=== PATIENT | female | born 1940 | race Caucasian/White ===

== ENCOUNTER 2023-10-14 16:43 | Inpatient (IN) | payer MEDICARE, SELFPAY ==
[2023-10-14] VITALS (14 sets, daily range): BP systolic 113–160; BP diastolic 60–98; PULSE 96–138; RESP 16–30; TEMP 36.4–36.9; O2SAT 44–99
--- NOTE | ~2023-10-14 | XR_ITS ---
EXAMINATION: XR chest 1V portable Exam Date/Time: 10/14/2023 16:50 CONTAINERS SALES REPRESENTATIVE HISTORY: SOB Comparison: None. RESULT: Lines, tubes, and devices: None. Lungs and pleura: Complete opacification of left hemithorax, with suggestion of volume loss in the l eft hemithorax. Cardiomediastinal silhouette: Obscured. Other: No acute osseous or upper abdominal finding. IMPRESSION: Complete opacification of left hemithorax as can be seen with pneumonectomy, total lung atelectasis, large consolidation, and pleural or chest wall mass. Reviewed, dictated and finalized at location K. AINERS SALES REPRESENTATIVE IMPRESSION: Complete opacification of left hemithorax as can be seen with pneumonectomy, to thai lung atelectasis, large consolidation, and pleural or chest wall mass.
--- NOTE | ~2023-10-14 | CT_ITS ---
EXAMINATION: CT chest abdomen pelvis w con DATE: 10/14/2023 20:41 INDICATION: presumed esophogeal cancer, check for metastesis . TECHNIQUE: Computed tomography (CT) of the chest, abdomen, and pelvis was performed with 100 mL Omnip aque-350 intravenous contrast. Automated exposure control and iterative reconstruction technique were employed. The dose-length product was 283.94 mGy-cm. COMPARISON: CT chest, noncontrast, same date FINDINGS: Examination limited by motion artifact and beam hardening from arm positioning. CHEST: Thoracic aorta: Mild ectasia and calcification. Lung parenchyma and airways: Complete atelectasis of the left lung. Scattered areas of centrilobular nodular opacity in the right lung. Fluid-filled left-sided bronchi. Thoracic inlet, axillae and chest wall: No thyroid or soft tissue mass. No axillary lymphadenopathy. Mediastinum: Masslike expansion of the mid esophagus measuring 7.2 x 5.8 x 10.6 cm. Patulous proximal esophagus. Normal-appearing distal esophagus below the level of the esophageal mass. Prevascular and subcarinal and right hilar lymphadenopathy. Heart and pericardium: Normal heart size. No pericardial effusion. Coronary artery calcifications: Absent. Pleura: Moderate volume left pleural effusion. Thoracic bones: No acute osseous finding in the chest. ABDOMEN/PELVIS: Liver: Right lobe cyst. Subcentimeter lesions are too small to characterize.. Biliary/Gallbladder: Gallbladder is normal. No bile duct dilation. Pancreas: No mass or duct dilation. Spleen: Normal. Adrenals:No mass. Kidneys: Nodular heterogeneous density masses infiltrate the posterior aspect of the bilateral perire nal spaces. No obstructing stone or or hydronephrosis. GI tract: No small or large bowel dilation. Appendix not confidently visualized. Mesentery/Peritoneum: Enlarged upper abdominal and michael hepatic lymph nodes. No ascites or free air. Retroperitoneum: Enlarged periaortic lymph nodes. Pelvis: Grossly normal urinary bladder. Uterus not visualized Soft Tissues: Soft tissues and body wall unremarkable. Abdominopelvic bones: No acute osseous finding in the abdomen/pelvis. IMPRESSION: Mediastinal mass measuring 7.2 x 5.8 x 10.6 cm, may represent an esophageal primary with ciro extens ion or vice versa. Left lung atelectasis with a moderate left effusion and extensive airway fluid which may be secondary to obstruction or invasion from the mediastinal ciro esophageal mass. Atypical infection and/or aspiration in the right lung. Bilateral perirenal space lesions which may represent tumor, retroperitoneal hematoma, or extramedull gold hematopoiesis. Tumor, such as lymphoma or metastases, is favored Upper abdominal/peritoneal lymphadenopathy Reviewed, dictated and finalized at [facility] K. [facility] IMPRESSION: Mediastinal mass measuring 7.2 x 5.8 x 10.6 cm, may represent an esophageal shaquille bruce with ciro extension or vice versa. Left lung atelectasis with a moderate left effusion and extensive airway fluid which may be secondary to obstruction or invasion from the mediastinal ciro es ophageal mass. Atypical infection and/or aspiration in the right lung. Bilateral perirenal space lesions which may represent tumor, retroperitoneal he matoma, or extramedullary hematopoiesis. Tumor, such as lymphoma or metastases, is favored Upper abdominal/peritoneal lymphadenopathy
--- NOTE | ~2023-10-14 | CT_ITS ---
EXAMINATION: CT diagnostic chest wo con DATE: 10/14/2023 17:31 INDICATION: rule out malignancy TECHNIQUE: Computed tomography (CT) of the chest was performed with 100 mL Omnipaque-350 intravenous contrast. Automated exposure control and iterative reconstruction technique were employed. The dose-l ength product was 135.96 mGy-cm. COMPARISON: None. FINDINGS: CHEST: Thoracic aorta: Mild ectasia and calcification. Lung parenchyma and airways: Complete atelectasis of the left lung motion artifact in the right lung with scattered areas of centrilobular nodular opacity. Thoracic inlet, axillae and chest wall: No thyroid or soft tissue mass. No axillary lymphadenopathy. Mediastinum: The proximal esophagus is patulous. The mid esophagus at the level of the taisha is adilene edly dilated with irregular wall thickening. The more distal esophagus appears more normal. There is mediastinal lymphadenopathy. Heart and pericardium: Normal heart size. No pericardial effusion. Coronary artery calcifications: Absent. Pleura: Small volume left pleural effusion. Upper abdomen: Considerable upper abdominal lymphadenopathy with nodular peritoneal masses. Thoracic bones: No acute osseous finding in the chest. IMPRESSION: Findings concerning for esophageal cancer, with metastatic disease involving the mediastinal lymph no edgar, upper abdominal lymph nodes and upper abdominal peritoneal spaces. The prior chest radiographic findings are secondary to complete left lung atelectasis which is probab ly secondary to bronchial occlusion/invasion from metastatic mediastinal lymphadenopathy. A component of mucus plugging could also be present. Scattered right lung pulmonary opacities may represent atypical infection or aspiration. Reviewed, dictated and finalized at location K. KEN AND FISH CLEANER IMPRESSION: Findings concerning for esophageal cancer, with metastatic disease involving th e mediastinal lymph nodes, upper abdominal lymph nodes and upper abdominal katrina toneal spaces. The prior chest radiographic findings are secondary to complete left lung atele ctasis which is probably secondary to bronchial occlusion/invasion from metasta tic mediastinal lymphadenopathy. A component of mucus plugging could also be pr esent. Scattered right lung pulmonary opacities may represent atypical infection or as piration.
--- NOTE | 2023-10-14 16:50 | ECG_ITS ---
Measurements Intervals [place] Rate: 102 P: 68 [place]: 156 QRS: 89 QRSD: 86 T: 100 QT: 365 QTc: 477 Interpretive Statements SINUS TACHYCARDIA POSSIBLE LEFT ATRIAL ENLARGEMENT ANTEROSEPTAL INFARCT, AGE INDETERMINATE BASELINE ARTIFACT- I, II, III, AVR, AVL, AVF, V1-V6 ABNORMAL ECG NO PREVIOUS ECG AVAILABLE FOR COMPARISON Electronically Signed On 10-14-2023 20:59:32 HEADER OPERATOR by Jaiden Buitrago D.O.
--- NOTE | 2023-10-14 17:06 | ED.GENADULT ---
HPI - General Adult General Chief complaint: Shortness of Breath/Dyspnea Stated complaint: SOB, Wheezing Time Seen by Provider: 10/14/23 17:06 Source: family Mode of arrival: ambulatory Limitations: physical limitation and clinical condition History of Present Illness HPI narrative: 82-year-old white female lives with her daughter, came to the ED with her daughter by private car. The daughter is telling me that patient has been having trouble breathing for a few months. Was seen by her doctor few times without significant improvement, was seen by ENT 6 days ago and was started on antibiotic for possible bronchitis / pneumonia, no imaging was done in the last few months. Patient does not take medicine at home, the daughter states that patient has been not eating well or drinking well over the last few months, patient is DNR, history of smoking years ago, is not on anti-platelet or anticoagulant medication. The daughter is telling me that patient probably has some dementia. Related Data Allergies Allergy/AdvReac Type Severity Reaction Status Date / Time No Known Allergies Allergy Verified 10/14/23 17:00 Course Consultations Consultation #1: dr thomas Will see the patient in a.m. Date: 10/14/23 Time: 18:28 Vital Signs Vital signs: Vital Signs Temperature 36.6 C 10/14/23 16:51 Pulse Rate 107 H 10/14/23 16:51 Respiratory Rate 30 H 10/14/23 16:51 Blood Pressure 157/95 H 10/14/23 16:51 Pulse Oximetry 88 L 10/14/23 16:51 Oxygen Delivery Room Air 10/14/23 16:51 Temperature 36.6 C 10/14/23 16:51 Pulse Rate 100 10/14/23 18:01 Respiratory Rate 24 H 10/14/23 18:01 Blood Pressure 124/80 10/14/23 18:01 Pulse Oximetry 95 10/14/23 18:01 Oxygen Delivery Nasal Cannula 10/14/23 17:02 Oxygen Flow Rate 2 10/14/23 17:02 Medical Decision Making Medical Records Medical records reviewed: Yes I reviewed the external patient's medical records. Vital Signs Vital Signs: Vital Signs Temperature 36.6 C 10/14/23 16:51 Pulse Rate 107 H 10/14/23 16:51 Respiratory Rate 30 H 10/14/23 16:51 Blood Pressure 157/95 H 10/14/23 16:51 Pulse Oximetry 88 L 10/14/23 16:51 Oxygen Delivery Room Air 10/14/23 16:51 Temperature 36.6 C 10/14/23 16:51 Pulse Rate 100 10/14/23 18:01 Respiratory Rate 24 H 10/14/23 18:01 Blood Pressure 124/80 10/14/23 18:01 Pulse Oximetry 95 10/14/23 18:01 Oxygen Delivery Nasal Cannula 10/14/23 17:02 Oxygen Flow Rate 2 10/14/23 17:02 Lab Data Lab results reviewed: Yes I reviewed the patient's lab results. 10/14/23 16:58 10/14/23 18:03 Labs: Lab Results 10/14/23 10/14/23 10/14/23 Range/Units 16:58 17:05 18:03 WBC 18.4 H (4.5-10.0) K/mm3 RBC 5.24 (4.2-5.4) M/mm3 Hgb 15.1 H (12.0-15.0) g/dL Hct 48.8 H (37.0-47.0) % MCV 93.1 (80-100) fl MCH 28.8 (26-34) pg MCHC 30.9 L (32-36) g/dl RDW 15.8 H (11.5-14.5) % Plt Count 520 H (150-375) k/mm3 MPV 10.2 (7.4-10.4) fl Immature Gran % (Auto) 0.4 (0-0.5) % Neut % (Auto) 81.5 H (45.5-73.1) % Lymph % (Auto) 13.6 L (18.3-44.2) % [place] % (Auto) 4.2 (2.6-8.5) % Eos % (Auto) 0.0 (0-4.4) % Baso % (Auto) 0.3 (0.2-1.2) % Lymph # (Auto) 2.51 (0.9-3.2) K/mm3 [place] # (Auto) 0.8 H (0.1-0.6) K/mm3 Eos # (Auto) 0.0 (0-0.3) K/mm3 Baso # (Auto) 0.1 (0.0-0.1) K/mm3 Abs Immat Gran (auto) 0.08 H (0.00-0.031) K/mm3 Absolute Neuts (auto) 15.0 H (1.3-6.7) K/mm3 Absolute Nucleated RBC 0.0 (0.0-0.012) K/mm3 Nucleated RBC % 0.0 (0.0-0.2) % PT 13.7 (11.1-14.7) Seconds INR 1.0 APTT 23.2 (22.3-36.8) SECONDS Methemoglobin 0.4 (0-1.5) %THb Sodium 137 (137-145) mmol/L Potassium 4.2 (3.4-5.0) mmol/L Chloride 97 L (98-107) mmol/L Carbon Dioxide 27 (22-30) mmol/L Anion Gap 13 (8-16) mmol/L BUN 18 H (7-17) mg/dL Creatinine 0.7
[2023-10-14 17:09] LABS: Basophils Absolute Auto 0.1 K/mm3 (0.0-0.1); Basophils Percent Auto 0.3 % (0.2-1.2); Hematocrit 48.8 % (37.0-47.0); Hemoglobin 15.1 g/dL (12.0-15.0); Immature Granulocyte Absolute 0.08 K/mm3 (0.00-0.031); Immature Granulocyte Percent A 0.4 % (0-0.5); Lymphocytes Absolute Auto 2.51 K/mm3 (0.9-3.2); Lymphocytes Percent Auto 13.6 % (18.3-44.2); Mean Corpuscular HGB Conc 30.9 g/dl (32-36); Mean Corpuscular Hemoglobin 28.8 pg (26-34); Mean Corpuscular Volume 93.1 fl (80-100); Mean Platelet Volume 10.2 fl (7.4-10.4); Monocytes Absolute Auto 0.8 K/mm3 (0.1-0.6); Monocytes Percent Auto 4.2 % (2.6-8.5); Neutrophils Percent Auto 81.5 % (45.5-73.1); Platelet Count Result 520 k/mm3 (150-375); Red Blood Count 5.24 M/mm3 (4.2-5.4); Red Cell Distribution Width 15.8 % (11.5-14.5); White Blood Count 18.4 K/mm3 (4.5-10.0)
[2023-10-14 17:10] LABS: Alveolar/Arterial O2 Gradient 82.7 mmHg; Base Excess ABG 1.3 mEq/l (+/-2.0); Carboxyhemoglobin 0.7 % THb (0-2.0); Fractional Inspired Oxygen 28 %; HCO3 ABG 27.2 mEq/l (22.0-26.0); Methemoglobin ABG 0.4 %THb (0-1.5); Oxygen Content ABG 18.3 %vol (16.0-22.0); Oxygen Saturation ABG 90.5 % (95.0-100.0); Oxyhemoglobin 87.9 % THb (90.0-100.0); PCO2 ABG 47.7 mmHg (35.0-45.0); PO2 ABG 60.7 mmHg (80.0-100.0); PO2 FiO2 Ratio Arterial Blood 2.17 %; Total Hemoglobin 14.8 g/dL (12.0-18.0); pH ABG 7.374 (7.350-7.450)
[2023-10-14] MEDS: ONDANSETRON INJ 4 MG/2 ML VIAL IV PUSH (17:10)
[2023-10-14] MEDS: MORPHINE SULFATE (*CRX) 2 MG/ML INJ IV PUSH (17:10)
[2023-10-14 17:11] LABS: Device NASAL CANNULA; Site Drawn RIGHT BRACHIAL
[2023-10-14 17:29] LABS: Prothrombin Time 13.7 Seconds (11.1-14.7)
[2023-10-14 17:30] LABS: Partial Thromboplastin Time 23.2 SECONDS (22.3-36.8)
[2023-10-14 18:28] LABS: Alanine Aminotransferase 23 U/L (6-35); Albumin Level 3.8 g/dL (3.5-5.1); Alkaline Phosphatase 65 U/L (38-126); Anion Gap 13 mmol/L (8-16); Aspartate Amino Transferase 41 U/L (14-36); Bilirubin,Total 0.5 mg/dL (0.2-1.3); Blood Urea Nitrogen 18 mg/dL (7-17); Calcium 9.5 mg/dL (8.4-10.2); Carbon Dioxide 27 mmol/L (22-30); Chloride 97 mmol/L (98-107); Estimated Glomerular Filt Rate > 60; Glucose 191 mg/dL (65-110); Potassium 4.2 mmol/L (3.4-5.0); Sodium 137 mmol/L (137-145)
[2023-10-14] MEDS: PIPERACILLN/TAZ 3.375GM/NS50ML 3.375 GM/50 ML BAG IVPB (18:50)
[2023-10-14 19:06] LABS: Lactic Acid Reflex 2.3 mmol/L (0.7-2.0)
--- NOTE | 2023-10-14 19:27 | PM.IMHP ---
H&P: HPI History of Present Illness Date/Time: 10/14/23 19:27 Chief Complaint: Dyspnea Narrative: This is an 82-year-old female patient who presented to the emergency department with complaints of difficulty breathing difficulty swallowing difficulty eating and weight loss. Symptoms have been ongoing for months getting worse each day. Patient's daughter states that patient's breathing has become very noisy over the last 2 days. She has not been eating or drinking appropriately and she has been having trouble swallowing when she does try to drink. Patient is very hard of hearing limiting the HPI and ROS. Patient tends to read lips and can understand her daughter the best. Patient was started on oxygen 2 L nasal cannula in the emergency department after being found to have a room air saturation of 88%. Chest x-ray revealed left lung essentially sabrina out. Chest CT contrast shows what appears to be esophageal cancer causing complete atelectasis of the left lung secondary to bronchial occlusion/information metastatic mediastinal lymphadenopathy and/or mucus plugging. Pulmonology was consulted and Dr. Mix stated she would see the patient tomorrow. Additionally, ER consulted Gastroenterology and Dr. Serra will see the patient tomorrow. Oncology has not yet been consulted. ER provider discussed possible hospice/comfort care with the patient and daughter. Additional family members will be arriving tomorrow and any further decisions have been delayed at this time. Patient is DNR status. Patient is quite awake and alert at this time. Patient denies any pain at this time. Review of Systems Review of Systems: ROS unobtainable: Yes other (Limited due to inability to hear and only reading lips) [facility] Past Medical History Medical History Arthritis Dementia Goiter HTN (hypertension) Surgical History Surgical History H/O: hysterectomy Hx of tonsillectomy Social History Social History Smoking status: Former smoker Tobacco type: cigarettes Alcohol intake: never Substance use: never Lack of Transportation: No Lack of Food: Never True Current Housing: I Have Housing Concerned About Future Housing: No Difficulty Paying Gas/Electric Bills: No Difficulty Paying for Meds: No Currently Unemployed: No Education: Bachelor's Degree Difficulty w/ Childcare or Family Care: No Spiritual care concerns: No Meds Home Medications and Allergies Home Medications Medication Instructions Recorded Confirmed Type amoxicillin 400 mg-potassium 10 ml PO BID 10/14/23 10/14/23 History clavulanate 57 mg/5 mL oral suspension Allergies Allergy/AdvReac Type Severity Reaction Status Date / Time No Known Allergies Allergy Verified 10/14/23 17:00 Vital Signs Vital Signs - 24 hr 10/14/23 16:51 10/14/23 16:56 10/14/23 16:59 Temperature 36.6 C Pulse Rate 107 H 101 H 107 H Respiratory Rate 30 H 23 H Blood Pressure 157/95 H 157/95 H Pulse Oximetry 88 L 91 Oxygen Delivery Room Air Oxygen Flow Rate 10/14/23 17:00 10/14/23 17:02 10/14/23 18:01 Temperature Pulse Rate 100 Respiratory Rate 24 H Blood Pressure 124/80 Pulse Oximetry 91 91 95 Oxygen Delivery Nasal Cannula Nasal Cannula Oxygen Flow Rate 2 2 10/14/23 18:49 Temperature Pulse Rate 105 H Respiratory Rate 26 H Blood Pressure Pulse Oximetry 94 Oxygen Delivery Oxygen Flow Rate Exam Narrative: GENERAL: Thin and cachectic appearing, loud noisy breathing with tachypnea. HEENT: Pupils are equally round and briskly reactive to light. Extraocular muscles are intact. NECK: The patient has no noted JVD. No adenopathy is appreciated. CHEST/LUNGS: Right lungs with scattered crackles, left lung essentially no auscultatory sounds, unequal r
[2023-10-14] MEDS: VANCOMYCIN 1,000 MG/NS 250 ML 1,000 MG/250 ML BAG 250 MG IVPB (19:34)
[2023-10-14 20:13] LABS: Magnesium 2.3 mg/dL (1.6-2.3); Phosphorus 5.5 mg/dL (2.5-4.5)
[2023-10-14 20:17] LABS: MRSA (PCR) NOT DETECTED (NOT DETECTE)
[2023-10-14] MEDS: LORazepam INJ (*CRX) 2 MG/ML VIAL 1 MG IV PUSH ×2 (20:18→23:55)
--- NOTE | 2023-10-14 20:50 | ADMGEN ---
This patient, Soumya Alexis, was admitted to [facility] Surg Room 330-01. Patient/family oriented to hospital policies and general routines including ID bracelet, bed and alarms, visiting hours, pain management, procedures, bathroom and other care routines, personal items, smoking policy, room service/diet, and visiting hours. Information on how to activate the Rapid Response Team has been discussed. Patient/Family are encouraged to report perceived risks to care and to ask questions if they do not understand what they are told or what they should do.
[2023-10-14 21:50] LABS: Reflex Lactic Acid Yes or No Add Lactic
[2023-10-14] MEDS: SODIUM CHLORIDE 0.9% IV 1,000 ML 50 ML IV CONT (22:33)
[2023-10-14] MEDS: levoFLOXacin 750 MG/D5W 150 ML 750 MG/150 ML BAG 100 MG IVPB (22:34)
[2023-10-14 22:56] LABS: Lactic Acid 1.7 mmol/L (0.7-2.0)
[2023-10-14 23:17] LABS: Alveolar/Arterial O2 Gradient 473.6 mmHg; Base Excess ABG -1.2 mEq/l (+/-2.0); Carboxyhemoglobin 0.1 % THb (0-2.0); Fractional Inspired Oxygen 90 %; HCO3 ABG 29.4 mEq/l (22.0-26.0); Methemoglobin ABG 0.4 %THb (0-1.5); Oxygen Content ABG 20.1 %vol (16.0-22.0); Oxyhemoglobin 93.4 % THb (90.0-100.0); PO2 ABG 87.5 mmHg (80.0-100.0); PO2 FiO2 Ratio Arterial Blood 0.97 %; Reduced Hemoglobin 6.1 %THb (0-5.0); Total Hemoglobin 15.3 g/dL (12.0-18.0)
[2023-10-14 23:17] LABS: Glucose Point of Care 169 mg/dl (65-105)
[2023-10-14 23:26] LABS: pH ABG 7.191 (7.350-7.450)
[2023-10-14 23:27] LABS: Device NON-REBREATHER MASK; Modified Allen's Test Pass; PCO2 ABG 78.6 mmHg (35.0-45.0); Site Drawn RIGHT RADIAL
--- NOTE | 2023-10-14 23:30 | PC.NURSE ---
This patient, Soumya Alexis, was transferred to ICU 8 on 10/14/23 at 2320. Personal belongings sent with patient. Report given to Sunny/Maurice Wu. Appropriate documentation sent with patient.
[2023-10-14] MEDS: fentaNYL CITRATE INJ (*CRX) 100 MCG/2 ML VIAL 50 MCG IV PUSH (23:56)
--- NOTE | 2023-10-14 23:56 | PM.EVENT ---
Event Note Event Note Event Note: Rapid response was called due to hypoxia and patient moaning in discomfort. Patient was found to have oxygen saturation in the 40s. Respiratory therapy attempted nasal tracheal suctioning without significant results. Patient was placed on 15 L non-rebreather and slowly oxygen levels jeanne to the 80s. Patient was transferred to the ICU after confirming with patient's granddaughter at bedside and daughter by phone that intubation was still to be utilized. Family had emphasized multiple times that short of compressions they wanted everything done at this time so other family member can make it to town to see her before she passes away. Patient was prepared for intubation in the ICU when patient's daughter arrived at bedside and saw how uncomfortable she was. She was on the phone with the out of town sister and together they decided on comfort measures rather than intubation. Patient received IV fentanyl and IV Ativan and was more comfortable but saturating in the 70s on non-rebreather. Riojas catheter will be placed for comfort and she will be moved back to [facility] to a private room. Due to a high probability of clinically significant, life threatening deterioration, the patient required my highest level of preparedness to intervene emergently and I personally spent this critical care time directly and personally managing the patient. This critical care time included obtaining a history; examining the patient; pulse oximetry; ordering and review of studies; arranging urgent treatment with development of a management plan; evaluation of patient's response to treatment; frequent reassessment; and discussions with other providers. It was exclusive of separately billable procedures and treating other patients and teaching time. Please see Assessment and Plan section and the rest of the note for further information on patient assessment and treatment. Critical Care time: 60 minutes
--- NOTE | 2023-10-15 00:05 | PC.NURSE ---
PLANER HAND called at 2259 due to pt becoming increasingly restless and SpO2 was 44%. Applied 15 L NRB and repositioned the pt. SpO2 slowly climbed back up to the high 80s. BREN Keys, Dr. Lane, dye house hand RN, and ICU rim fire charger operator arrived shortly after for further evaluation.
--- NOTE | 2023-10-15 01:04 | PC.NURSE ---
This patient, Soumya Alexis, was received from ICU 8 to room 300 on 10/15/23 at 0104. Patient/family oriented to unit policies and routines
--- NOTE | 2023-10-15 01:08 | PC.NURSE ---
2315: Patient arrived to ICU 8 for intubation post rapid response. MD Lane and Massimo Gee APN at bedside. Patient's daughter arrived to the unit and requested to see the patient prior to intubation. After seeing the patient the family decided to make the patient comfort care. RN administered medications per orders and transferred the patient back to Yoselyn Cordova RN.
[2023-10-15 03:03] VITALS: RESP 30
[2023-10-15] MEDS: LORazepam INJ (*CRX) 2 MG/ML VIAL IV PUSH ×3 (03:04→10:34)
[2023-10-15] MEDS: ATROPINE SULFATE 1% OPHTH SOLN 5 ML BOTTLE SUBLINGUAL ×2 (03:04→07:41)
[2023-10-15] MEDS: MORPHINE SULFATE (*CRX) 2 MG/ML INJ IV PUSH ×3 (03:29→09:04)
[2023-10-15 10:40] VITALS: BP 50/29; PULSE 124; RESP 26; TEMP 37.7; O2SAT 73
--- NOTE | 2023-10-15 11:10 | PM.CNPUL ---
History of Present Illness History of Present Illness Consult date: 10/15/23 Requesting physician: Corinne Gan MD Chief complaint: Acute hypoxic respiratory failure, aspiration pneu Narrative: Dr Gan called me about this patient last night regarding left lung consolidation. The RN told me today that the patient is on comfort care. I did not see her. [facility] Past Medical History Medical History Arthritis Dementia Goiter HTN (hypertension) Surgical History Surgical History H/O: hysterectomy Hx of tonsillectomy Social History Social History Smoking status: Former smoker Tobacco type: cigarettes Alcohol intake: never Substance use: never Lack of Transportation: No Lack of Food: Never True Current Housing: I Have Housing Concerned About Future Housing: No Difficulty Paying Gas/Electric Bills: No Difficulty Paying for Meds: No Currently Unemployed: No Education: Bachelor's Degree Difficulty w/ Childcare or Family Care: No Spiritual care concerns: No Meds Home Medications and Allergies Home Medications Medication Instructions Recorded Confirmed Type amoxicillin 400 mg-potassium 10 ml PO BID 10/14/23 10/14/23 History clavulanate 57 mg/5 mL oral suspension Allergies Allergy/AdvReac Type Severity Reaction Status Date / Time No Known Allergies Allergy Verified 10/14/23 17:00 Vital Signs Vital Signs - 24 hr 10/14/23 16:51 10/14/23 16:56 10/14/23 16:59 Temperature 36.6 C Pulse Rate 107 H 101 H 107 H Respiratory Rate 30 H 23 H Blood Pressure 157/95 H 157/95 H Pulse Oximetry 88 L 91 Oxygen Delivery Room Air Oxygen Flow Rate 10/14/23 17:00 10/14/23 17:02 10/14/23 18:01 Temperature Pulse Rate 100 Respiratory Rate 24 H Blood Pressure 124/80 Pulse Oximetry 91 91 95 Oxygen Delivery Nasal Cannula Nasal Cannula Oxygen Flow Rate 2 2 10/14/23 18:49 10/14/23 19:35 10/14/23 22:00 Temperature 36.4 C Pulse Rate 105 H 101 H 96 Respiratory Rate 26 H 20 16 Blood Pressure 150/82 H 113/60 Pulse Oximetry 94 97 93 Oxygen Delivery Oxygen Flow Rate 10/14/23 21:00 10/14/23 22:59 10/14/23 23:00 Temperature Pulse Rate Respiratory Rate Blood Pressure Pulse Oximetry 99 44 L 48 L Oxygen Delivery Nasal Cannula Non-Rebreather Mask Oxygen Flow Rate 4 15 10/14/23 23:14 10/15/23 03:03 10/14/23 23:30 Temperature 36.9 C Pulse Rate 138 H Respiratory Rate 30 H 25 H Blood Pressure 160/98 H Pulse Oximetry 87 L 88 L Oxygen Delivery Non-Rebreather Mask Oxygen Flow Rate 15 10/15/23 08:00 10/15/23 10:40 Temperature 37.7 C H Pulse Rate 124 H Respiratory Rate 26 H Blood Pressure 50/29 L Pulse Oximetry 73 L Oxygen Delivery Room Air Oxygen Flow Rate Results Laboratory Findings 10/14/23 16:58 10/14/23 18:03 ABG, PT/INR, D-dimer: ABG ABG pH 7.191 (7.350-7.450) L* 10/14/23 23:12 ABG pCO2 78.6 mmHg (35.0-45.0) H* 10/14/23 23:12 ABG pO2 87.5 mmHg (80.0-100.0) 10/14/23 23:12 ABG O2 Saturation 94.0 % (95.0-100.0) L 10/14/23 23:12 PT/INR, D-dimer PT 13.7 Seconds (11.1-14.7) 10/14/23 16:58 INR 1.0 10/14/23 16:58 Abnormal lab findings: Abnormal Labs 10/14/23 10/14/23 10/14/23 16:58 17:05 18:03 WBC 18.4 H Hgb 15.1 H Hct 48.8 H MCHC 30.9 L RDW 15.8 H Plt Count 520 H Neut % (Auto) 81.5 H Lymph % (Auto) 13.6 L [place] # (Auto) 0.8 H Abs Immat Gran (auto) 0.08 H Absolute Neuts (auto) 15.0 H ABG pH ABG pCO2 47.7 H ABG pO2 60.7 L ABG HCO3 27.2 H ABG O2 Saturation 90.5 L Oxyhemoglobin 87.9 L Reduced Hemoglobin 11.0 H Chloride 97 L BUN 18 H Glucose 191 H POC Capillary Glucose Lact
--- NOTE | 2023-10-15 13:17 | PM.DDS ---
Discharge Summary Date and Time Date of : 10/15/23 Time of : 11:25 Provider Pronounced By: Traci Merida Probable Cause of Probable Cause of : Respiratory failure from aspiration pneumonia Summary Hospital Course: 82-year-old female patient who presented to the emergency department with complaints of difficulty breathing difficulty swallowing difficulty eating and weight loss. Chest CT contrast shows what appears to be esophageal cancer causing complete atelectasis of the left lung secondary to bronchial occlusion/information metastatic mediastinal lymphadenopathy and/or mucus plugging.?Presumably esophageal cancer with metastasis based on imaging. Rapid response was called due to hypoxia and patient moaning in discomfort.? Patient was found to have oxygen saturation in the 40s.? Respiratory therapy attempted nasal tracheal suctioning without significant results.? Patient was placed on 15 L non-rebreather and slowly oxygen levels jeanne to the 80s.? Patient was transferred to the ICU after confirming with patient's granddaughter at bedside and daughter by phone that intubation was still to be utilized.? Family had emphasized multiple times that short of compressions they wanted everything done at this time so other family member can make it to town to see her before she passes away.? Patient was prepared for intubation in the ICU when patient's daughter arrived at bedside and saw how uncomfortable she was.? She was on the phone with the out of town sister and together they decided on comfort measures rather than intubation. Patient shortly after, comfortably. Please see above for details. Additional Data Confirmation of as documented by pronouncing clinician: Pupillary Reflex, Palpable Pulses, Response to Stimuli, Heart Tones and Breath Sounds Name of Provider Notified: Dr. Wang Time Provider Notified: 11:29 Provider Requests Autopsy: No Production Control Specialist Notified: Yes Date [facility] Notified of : 10/15/23 Time [facility] Notified of : 11:44
== END 2023-10-15 11:25 | disposition expired | DRG 177 ==
LOC: ANHED 18:17 → ANH3MEDSUR 19:54
PROVIDERS: Emergency Medicine; Nurse Practitioner; Admitting Provider General Practice; Emergency Provider Emergency Medicine; PCP Family Medicine Sports Medicine; Visit Provider Student in an Organized Health Care Education/Training Program
DX: J69.0 Pneumonitis due to inhalation of food and vomit (principal); J96.01 Acute respiratory failure with hypoxia; C15.9 Malignant neoplasm of esophagus, unspecified; C77.1 Secondary and unspecified malignant neoplasm of intrathoracic lymph nodes; J98.11 Atelectasis; E46 Unspecified protein-calorie malnutrition; R64 Cachexia; Z68.1 Body mass index [BMI] 19.9 or less, adult; I10 Essential (primary) hypertension; E04.9 Nontoxic goiter, unspecified; M19.90 Unspecified osteoarthritis, unspecified site; F03.90 Unspecified dementia, unspecified severity, without behavioral disturbance, psychotic disturbance, mood disturbance, and anxiety; Z87.891 Personal history of nicotine dependence
CPT/HCPCS: 36415; 36600; 71045; 71250; 71260; 74177; 80053; 82375; 82805; 82948; 83050; 83605; 83735; 84100; 85025; 85610; 85730; 86140; 87040; 87641; 93005; 96374; 96375; 99291; A9270; J1956; J2060; J2270; J2405; J2543; J3010; J3370; J7030; Q9967